=== PATIENT | male | born 1990 | race Caucasian/White ===

== ENCOUNTER 2020-06-10 15:02 | Emergency (ER) | payer OTHER ==
[~2020-06-10] VITALS: Ht 182.9 cm; Wt 65.2 kg
--- NOTE | 2020-06-10 16:08 | REP ---
INDICATION: pain to 5th metatarsal extending up foot COMPARISON: None. TECHNIQUE: AP, lateral, bilateral oblique views left foot. FINDINGS: The osseous structures and joint spaces are intact and normal. There is no evidence for acute fracture or dislocation. Surrounding soft tissues are unremarkable. No subcutaneous emphysema or radiodense foreign body. IMPRESSION: Normal age-appropriate left foot radiographs. No acute fracture or dislocation. <Electronically signed by Geoff Kong > 06/10/20 [id number]
[2020-06-10 16:24] VITALS: BP 122/81
== END 2020-06-10 16:24 | disposition home or self-care (01) ==
LOC: M ED 15:02
DX: S93.515A Sprain of interphalangeal joint of left lesser toe(s), initial encounter (principal); W22.8XXA Striking against or struck by other objects, initial encounter; Y92.9 Unspecified place or not applicable; Y93.9 Activity, unspecified; Y99.9 Unspecified external cause status; Z91.041 Radiographic dye allergy status

== ENCOUNTER 2020-08-22 20:43 | Emergency (ER) | payer OTHER ==
[~2020-08-22] VITALS: Ht 182.9 cm; Wt 64.0 kg
[2020-08-22 22:28] LABS: BLOOD UREA NITROGEN 22 MG/DL (7-18); CALCIUM LEVEL 8.2 MG/DL (8.5-10.1); CARBON DIOXIDE LEVEL 33 MEQ/L (21-32); CHLORIDE LEVEL 106 MEQ/L (98-107); CREATININE FOR GFR 1.02 MG/DL (0.70-1.30); GLOMERULAR FILTRATION RATE > 60.0 (>60); GLUCOSE, FASTING 98 MG/DL (70-100); MAGNESIUM LEVEL 2.2 MG/DL (1.8-2.4); POTASSIUM SERUM 3.9 MEQ/L (3.5-5.1); SODIUM LEVEL 141 MEQ/L (136-145)
[2020-08-22] MEDS ORDERED: diphenhydrAMINE 50MG/ML VIAL (J1200) IV STA (22:43)
[2020-08-22] MEDS ORDERED: NS 1,000 ML IV ONE (22:45)
[2020-08-22] MEDS ORDERED: KETOROLAC 30 MG/ML 1ML VIAL IV ONE (22:45)
[2020-08-22] MEDS ORDERED: METOCLOPRAMIDE INJ 10MG/2ML VIAL (J2765 PER 1) IV ONE (22:45)
--- NOTE | 2020-08-22 23:19 | REPVR ---
PROCEDURE INFORMATION: Exam: CT Head Without Contrast Exam date and time: 08/22/2020 11:00 PM Age: 30 years old Clinical indication: Pain; Headache; Additional info: CALL right sided x 2 days, CALL x couple weeks, no HX TECHNIQUE: Imaging protocol: Computed tomography of the head without contrast. Radiation optimization: All CT scans at this facility use at least one of these dose optimization techniques: automated exposure control; mA and/or kV adjustment per patient size (includes targeted exams where dose is matched to clinical indication); or iterative reconstruction. COMPARISON: No relevant prior studies available. FINDINGS: Brain: No hemorrhage. Unremarkable white matter. No mass effect. Cerebral ventricles: No ventriculomegaly. Bones/joints: No acute fracture. Paranasal sinuses: Fluid layers in the left greater than right sphenoid sinuses. Otherwise mild paranasal sinus mucosal thickening within the imaged sinuses. Mastoid air cells: Visualized mastoid air cells are well aerated. Soft tissues: Unremarkable. IMPRESSION: 1. No acute intracranial abnormality. 2. Fluid layering within the sphenoid sinuses can be seen with sinusitis in the appropriate clinical setting. Electronically signed by: Daron Lopez On 08/22/2020 23:18:33 PM
[2020-08-23 00:09] VITALS: BP 105/57
== END 2020-08-23 00:33 | disposition home or self-care (01) ==
LOC: M ED 20:43
DX: R51.9 Headache, unspecified (principal); Z98.890 Other specified postprocedural states; Z91.041 Radiographic dye allergy status
CPT/HCPCS: 70450; 80048; 83735; 85652; 96374; 96375; 99284; J1200; J1885; J2765

== ENCOUNTER → 2021-12-10 | Outpatient (CLI) | payer OTHER | LOC: M RAD 10:33 | PROVIDERS: ATTEND Nurse Practitioner Family | DX: M25.511 Pain in right shoulder (principal) ==

== ENCOUNTER 2021-12-28 00:15 | Emergency (ER) | payer OTHER ==
[~2021-12-28] VITALS: Ht 182.9 cm; Wt 65.0 kg
[2021-12-28 00:15] VITALS: BP 108/62
== END 2021-12-28 02:36 | disposition home or self-care (01) ==
LOC: M ED 00:15
DX: Z20.822 Contact with and (suspected) exposure to COVID-19 (principal); Z91.041 Radiographic dye allergy status

== ENCOUNTER 2022-01-13 04:51 | Emergency (ER) | payer OTHER ==
[~2022-01-13] VITALS: Ht 182.9 cm; Wt 65.0 kg
[2022-01-13] MEDS ORDERED: ACETAMINOPHEN TAB 650MG DOSE (2X325MG) PO ONE (07:05)
[2022-01-13 07:27] LABS: BASO % 0.1 % (0.0-1.0); EOS % 0.3 % (0.0-3.0); HEMATOCRIT 41.9 % (42.0-52.0); HEMOGLOBIN 13.9 g/dl (13.5-17.5); LYMPH # 0.9 10^3/uL (1.5-5.0); MEAN CORPUSCULAR HEMOGLOBIN 28.1 pg (27.0-33.0); MEAN CORPUSCULAR HGB CONC 33.2 g/dl (32.0-36.5); MEAN CORPUSCULAR VOLUME 84.8 fl (80.0-96.0); MONO # 1.4 10^3/uL (0.0-0.8); MONO % 8.9 % (2.0-8.0); NEUTROPHILS # 13.3 10^3/uL (1.5-8.5); NEUTROPHILS % 84.3 % (36.0-66.0); PLATELET COUNT, AUTOMATED 208 10^3/uL (150-450); RED BLOOD COUNT 4.94 10^6/uL (4.30-6.10); WHITE BLOOD COUNT 15.8 10^3/uL (4.0-10.0)
[2022-01-13 07:49] LABS: MONO SCRN NEGATIVE (NEGATIVE)
[2022-01-13 08:24] VITALS: BP 109/59
[2022-01-13] MEDS ORDERED: CEPH500C PO (08:47)
[2022-01-13] MEDS ORDERED: CEPHALEXIN 500 MG CAP PO ONE (08:50)
== END 2022-01-13 08:55 | disposition home or self-care (01) ==
LOC: M ED 04:51
DX: J03.90 Acute tonsillitis, unspecified (principal); R50.9 Fever, unspecified; Z91.041 Radiographic dye allergy status

== ENCOUNTER 2022-01-21 09:02 | Emergency (ER) | payer OTHER ==
[~2022-01-21] VITALS: Ht 185.4 cm; Wt 63.6 kg
[~2022-01-21 09:02] MED LIST: CEPH500C PO
[2022-01-21] MEDS ORDERED: BENA25CA4 PO (09:17)
[2022-01-21] MEDS ORDERED: PRED20TA PO (12:00)
[2022-01-21 12:39] VITALS: BP 116/76
== END 2022-01-21 12:41 | disposition home or self-care (01) ==
LOC: M ED 09:02
DX: R21 Rash and other nonspecific skin eruption (principal); T78.40XA Allergy, unspecified, initial encounter; Z91.041 Radiographic dye allergy status

== ENCOUNTER → 2022-07-03 | Outpatient (CLI) | payer OTHER ==
[~2022-07-03] MED LIST changes: +BENA25CA4 PO; +PRED20TA PO
== END ==
LOC: M PLAIMG 07:06
PROVIDERS: ATTEND Physician Assistant
DX: M19.011 Primary osteoarthritis, right shoulder (principal)

== ENCOUNTER → 2023-05-26 | Outpatient (CLI) | payer OTHER ==
[2023-05-26 12:52] LABS: BASO % 0.8 % (0.0-1.0); EOS # 0.5 10^3/uL (0.0-0.5); EOS % 8.9 % (0.0-3.0); HEMATOCRIT 45.6 % (42.0-52.0); HEMOGLOBIN 14.8 g/dl (13.5-17.5); LYMPH # 1.1 10^3/uL (1.5-5.0); LYMPH % 20.7 % (24.0-44.0); MEAN CORPUSCULAR HEMOGLOBIN 27.9 pg (27.0-33.0); MEAN CORPUSCULAR HGB CONC 32.5 g/dl (32.0-36.5); MEAN CORPUSCULAR VOLUME 85.9 fl (80.0-96.0); MONO # 0.4 10^3/uL (0.0-0.8); MONO % 8.4 % (2.0-8.0); NEUTROPHILS # 3.2 10^3/uL (1.5-8.5); PLATELET COUNT, AUTOMATED 227 10^3/uL (150-450); RED BLOOD COUNT 5.31 10^6/uL (4.30-6.10); WHITE BLOOD COUNT 5.3 10^3/uL (4.0-10.0)
[2023-05-26 13:10] LABS: ERYTHROCYTE SEDIMENTATION RATE 4 mm/hr (0-15)
[2023-05-26 13:23] LABS: C REACTIVE PROTEIN QUANTITATIV < 0.40 MG/DL (<1.0)
[2023-05-26 13:25] LABS: RHEUMATOID FACTOR QUANT < 3.5 IU/ML (<14)
== END ==
LOC: M LAB 11:17
PROVIDERS: ATTEND Physician Assistant
DX: M75.41 Impingement syndrome of right shoulder (principal)